=== PATIENT | female | born 1985 | race Caucasian/White ===

== ENCOUNTER → 2018-07-14 | Outpatient (CLI) | payer OTHER ==
--- NOTE | 2018-07-14 10:18 | 2DMMODE ---
[facility] [place] [address] 2 D/M-MODE ECHOCARDIOGRAM Name: BAKARI WILHELMJesi ERNANDEZ Room #: REG CL [facility]#: [id number] ������������� Admission: 07/14/18 ������������� Attend Phys: Conor Lee Discharge: ��� ������������� ��� Date of : 87 Date of Service: 07/14/18 1018 �� Report #: [id number] �������� ��������������������������������������������[id number] THIS REPORT FOR: //name// APPROVED REPORT Study performed: 07/14/2018 09:27:30 EXAM: Comprehensive 2D, Doppler, and color-flow Echocardiogram Patient Location: Out-Patient Status: routine BSA: 1.75 HR: 92 bpm BP: 118/80 mmHg Rhythm: NSR Other Information Study Quality: Adequate/thin body habitus. Indications ICD. Hx: Caridac arrest, arrhythmia, thoracis outlet syndrome. 2D Dimensions RVDd: 27.29 mm IVSd: 6.05 (7-11mm) LVOT Diam: 21.26 (18-24mm) LVDd: 51.56 mm PWd: 5.90 (7-11mm) LVDs: 39.98 (25-40mm) Aortic Root: 30.05 mm Volumes Left Atrial Volume (Systole) Single Plane 4CH: 39.86 mL Single Plane 2CH: 36.76 mL LA ESV Index: 24.00 mL/m2 Aortic Valve AoV Peak Oscar.: 1.30 m/s AO Peak Gr.: 6.80 mmHg LVOT Max P.28 mmHg LVOT Max V: 0.90 m/s BERNADETTE Vmax: 2.46 cm2 Mitral Valve E/A Ratio: 1.5 MV Decel. Time: 102.25 ms MV E Max Oscar.: 1.00 m/s [facility] [address] [place] [address] 2 D/M-MODE ECHOCARDIOGRAM Name: CHOCOGENAVINNIE ERNANDEZ Room #: [facility]#: [id number] ������������� Admission: 07/14/18 ������������� Attend Phys: Conor Lee Discharge: ��� ������������� ��� Date of : 87 Date of Service: 07/14/18 1018 �� Report #: [id number] �������� ��������������������������������������������[id number] MV A Oscar.: 0.66 m/s MV PHT: 29.65 ms IVRT: 79.58 ms Pulmonary Valve PV Peak Oscar.: 1.08 m/s PV Peak Gr.: 4.64 mmHg Pulmonary Vein P Vein S: 0.51 m/s P Vein D: 0.53 m/s P Vein S/D Ratio: 0.96 Tricuspid Valve TR Peak Oscar.: 2.17 m/s RAP Estimate: 5.00 mmHg TR Peak Gr.: 18.76 mmHg PA Pressure: 24.00 mmHg Left Ventricle The left ventricle is normal size. There is normal LV segmental wall motion. There is normal left ventricular wall thickness. The left ventricular systolic function is normal. The left ventricular ejection fraction is within the normal range. LVEF is 55%. The left ventricular diastolic function is normal. Right Ventricle The right ventricle is normal size. The right ventricular systolic function is normal. Atria The left atrium size is normal. The right atrium size is normal. Aortic Valve The aortic valve is normal in structure. No aortic regurgitation is present. There is no aortic valvular stenosis. Mitral Valve The mitral valve is normal in structure. Mild mitral regurgitation. Tricuspid Valve The tricuspid valve is normal in structure. Trace tricuspid regurgitation. Pulmonic Valve The pulmonary valve is normal in structure. Trace pulmonic [facility] [address] [place] [address] 2 D/M-MODE ECHOCARDIOGRAM Name: GENA WILHELM AWAIS Room #: REG [facility]#: [id number] ������������� Admission: 07/14/18 ������������� Attend Phys: Conor Lee Discharge: ��� ������������� ��� Date of : 87 Date of Service: 07/14/18 1018 �� Report #: [id number] �������� ��������������������������������������������[id number] regurgitation. Great Vessels The aortic root is normal in size. The ascending aorta is normal in size. IVC is normal in size and collapses >50% with inspiration. Pericardium There is no pericardial effusion. <Conclusion> The left ventricular systolic function is normal. There is normal LV segmental wall motion. LVEF is 55%. Normal diastolic function The aortic valve is normal in structure. No aortic regurgitation or stenosis The mitral valve is normal in structure. Mild mitral regurgitation. Pulmonary artery pressure of 25mm Hg There is no pericardial effusion. ��������������������������������������������� <ELECTRONICALLY SIGNED> ���������������������������������������� By: Leif House MD, [facility] ��������������������������������������������� 07/14/18 1018 [id number] Leif House MD, FAC /INF
== END ==
LOC: RAD 09:06 → CV 09:06
DX: I34.0 Nonrheumatic mitral (valve) insufficiency (principal); Z95.810 Presence of automatic (implantable) cardiac defibrillator

== ENCOUNTER → 2020-03-21 | Outpatient (CLI) | payer OTHER ==
[~2020-03-21] MED LIST: COLACE 100 MG100 MG; DOXYCYCLINE 10100 M1 PO; IBUPROFEN 600600 M1; METHOCARBAMOL500 M1 PO; METOPROLOL PO; NORFLEX100 MG PO; NORTRIPTYLINE H75 M1 PO; OSELB75 PO; OXYCODONE HCL15 MG PO; PERCOCET 5-3251 EACH; PERCOCET 5-3251 EACH PO; PRENATA CHEWAB1 EACH PO; PRENATAL COMPL1 EACH; PROMETHAZINE-C120 ML PO; ZOFRAN ODT4 MG PO
== END ==
LOC: SJCVCIMAG 10:32
PROVIDERS: ATTEND Internal Medicine Cardiovascular Disease
DX: I08.8 Other rheumatic multiple valve diseases (principal); I49.5 Sick sinus syndrome; I47.1 Supraventricular tachycardia; I42.8 Other cardiomyopathies; M51.36 Other intervertebral disc degeneration, lumbar region; Z95.0 Presence of cardiac pacemaker; Z92.89 Personal history of other medical treatment; Z86.74 Personal history of sudden cardiac arrest; Z87.891 Personal history of nicotine dependence